=== PATIENT | female | born 1990 | race Caucasian/White ===

== ENCOUNTER 2020-12-09 15:47 | Outpatient (CLI) | payer OTHER, SELFPAY ==
--- NOTE | 2020-12-09 16:58 | ECG_ITS ---
Measurements Intervals [place] Rate: 75 P: 72 PA: 136 QRS: 98 QRSD: 95 T: 62 QT: 362 QTc: 406 Interpretive Statements SINUS RHYTHM WITH SINUS ARRHYTHMIA RIGHT AXIS DEVIATION DELAYED PRECORDIAL R/S TRANSITION BORDERLINE ECG Electronically Signed On 12-09-2020 19:58:55 CDT by [place] D.O.
--- NOTE | 2020-12-24 10:03 | WPDHOLTEREM ---
Holter/Event Monitor Holter/Event Monitor Date of procedure: 12/09/20 Holter/Event Procedure: Event Monitor Indications: Palpitations Conclusion: 1. 11 days event monitor between 12/09/20-12/22/20. There are 30 available transmissions for analysis. 2. Predominant rhythm is sinus rhythm. HR range 50-159 bpm; average HR 86 bpm. 3. There are occasional premature supraventricular complexes with total burden of <1%. No supraventricular tachycardia. 4. There are occasional premature ventricular complexes with total burden of <1%. One episode of ventricular tachycardia at 158 bpm lasting 5 beats on 12/13/20 at 02:02. 5. No significant pauses greater than 2 seconds. 6. Patient reports 22 episodes of symptoms of shortness of breath, heart racing, skipped beats, lightheadedness, symptom other than listed which demonstrate sinus rhythm, HR range 90-138 bpm and 1 PVC.
== END 2020-12-09 15:48 | disposition home or self-care (01) ==
LOC: CHSCARD 15:52
PROVIDERS: PCP Family Medicine; Visit Provider Family Medicine
DX: R00.0 Tachycardia, unspecified (principal)
CPT/HCPCS: 93005; 93270